=== PATIENT | male | born 1970 | race Native Hawaiian/Other Pacific Islander ===

== ENCOUNTER 2018-11-23 21:44 | Outpatient (CLI) | payer OTHER | END 2018-11-23 21:57 | disposition short-term general hospital (02) | LOC: AMB 21:44 | DX: R06.02 Shortness of breath (principal); R41.82 Altered mental status, unspecified; H55.09 Other forms of nystagmus | CPT/HCPCS: A0425; A0427 ==

== ENCOUNTER 2019-11-13 13:39 | Emergency (ER) | payer OTHER ==
[~2019-11-13] VITALS: Ht 172.7 cm; Wt 74.8 kg
[2019-11-13 13:49] VITALS: BP 186/93; TEMP 98.7
[2019-11-13 14:32] LABS: PLATELET COUNT 322 K/uL (142-355)
[2019-11-13 14:52] LABS: PARTIAL THROMBOPLASTIN TIME 28.9 SECONDS (24.5-33.6)
[2019-11-13 15:11] LABS: POTASSIUM 3.3 mmol/L (3.6-5.2); SODIUM 137 mmol/L (136-145)
== END 2019-11-13 18:30 | disposition short-term general hospital (02) ==
LOC: ED 13:39
PROVIDERS: Family Medicine
PROC: 0T9B70Z Drainage of Bladder with Drainage Device, Via Natural or Artificial Opening (ICD-10-PCS; principal; 2019-11-13)
PROC: 0BH17EZ Insertion of Endotracheal Airway into Trachea, Via Natural or Artificial Opening (ICD-10-PCS; 2019-11-13)
PROC: 5A1935Z Respiratory Ventilation, Less than 24 Consecutive Hours (ICD-10-PCS; 2019-11-13)
PROC: 5A12012 Performance of Cardiac Output, Single, Manual (ICD-10-PCS; 2019-11-13)
DX: J18.9 Pneumonia, unspecified organism (principal); A41.9 Sepsis, unspecified organism; R73.9 Hyperglycemia, unspecified
CPT/HCPCS: 31500; 36600; 51702; 80053; 80307; 80320; 80329; 81000; 82550; 82805; 83605; 84484; 85027; 85379; 85610; 85730; 87040; 92950; 93005; 94002; 94760; 96360; 96361; 96375; 96376; 99285; J0171; J0461; J0696; J2060; J2310; J3490; Q9963